=== PATIENT | male | born 1960 | race Caucasian/White ===

== ENCOUNTER 2020-02-11 13:52 | Outpatient (REF) | payer OTHER, SELFPAY | END 2020-02-11 13:53 | disposition home or self-care (01) | LOC: HO.LAB 13:52 | PROVIDERS: Visit Provider Internal Medicine | DX: Z20.828 Contact with and (suspected) exposure to other viral communicable diseases (principal) | CPT/HCPCS: U0003 ==

== ENCOUNTER → 2022-11-09 14:28 | Outpatient (BNVA) | payer OTHER, SELFPAY | PROVIDERS: PCP Internal Medicine; Visit Provider Nurse Practitioner Family ==

== ENCOUNTER → 2022-11-09 14:28 | Outpatient (AMB) | payer OTHER, SELFPAY ==
--- NOTE | 2022-11-09 14:34 | A.OFFVIS_ITS ---
Intake Vital Signs 11/09/22 14:39 Height 5 ft 8 in Weight 217 lb BMI 33.0 BP 142/74 H Blood Pressure Location Lt brachial Position Sitting Pulse 72 Intake Visit Reasons: Colonoscopy screening Intake Note: New consult for 2nd pre colonoscopy screening. Patient cc: occasional constipation and denies any other GI issues. 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 Accompanied by: Self / Same As Patient Allergies No Known Allergies Allergy (Verified 11/09/22 14:34) Medication List - Last Reconciled 11/09/22 by Lizzie Prieto PA-C ropinirole 4 mg PO TID PRN HPI HPI Comments History of Present Illness Details A 61 y/o male referred for screening colonoscopy- -wants to have it done before retires 12/07 Last colonoscopy- 10 years ago -hyperplastic polyp Mild constipation-manages with diet Appetite is good No known family history colon No nausea, vomiting, hematemesis, hematochezia fever chills PFSH Social History (Updated 11/09/22 @ 14:49 by Lizzie Prieto PA-C) Household Members Other:: lives alone Alcohol intake: current Patient Tobacco Use Status: Current someday Tobacco user Current occupational status: employed Review of Systems Const All systems reviewed & are unremarkable except as noted in HPI and below Card Denies chest pain and Denies dyspnea Resp Denies dyspnea GI Denies abdominal pain, Denies hematochezia and Denies heartburn Physical Exam Vital Signs: Last Vital Signs Pulse 72 11/09/22 14:39 BP 142/74 H 11/09/22 14:39 BMI result Body Mass Index 33.0 Const General: healthy appearing and comfortable Orientation/consciousness: patient oriented x3 Limitations: no limitations Eyes Sclerae: sclerae normal Resp Effort & Inspection: normal respiratory effort and able to speak in complete sentences Auscultation: clear to auscultation bilaterally and no wheezes Cardio Rate: regular rate Rhythm: regular rhythm Heart sounds: S1 normal heart sound present and S2 normal heart sound present GI Palpation (GI): Soft to palpation and nontender Auscultation: normal bowel sounds Skin General skin exam: no rashes or lesions noted Neuro General: patient oriented x3 Extrem General: Yes full ROM Psych Mental Status: mental status grossly normal Speech and movement: Clear speech present Affect: Indifferent affect present Attitude: cooperative Assessment & Plan Assessment & Plan (1) Encounter for screening colonoscopy: Comment: Screening colonoscopy will try however best to accommodate his time frame- however schedules are well- 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 His insurance will end by then He is aware that scheduling into December at this time. needs transportation MiraLax Gatorade prep sent to pharmacy, Literature to Orders: Orders Colonoscopy - GI Use Only 11/09/22 Z12.11 - Encounter for screening for malignant neoplasm of colon Medications: New bisacodyl (Dulcolax (bisacodyl)) Take 4 tablets by mouth at 12:00pm the day before your procedure. 20 mg (4 x 5 mg) PO ONCE 1 day 4 tabs 0RF colonoscopy prep Z12.11 - Encounter for screening for malignant neoplasm of colon polyethylene glycol 3350 (Miralax) Take as directed by mouth the day before your procedure. 238 grams PO ONCE 1 day PRN 238 grams 0RF laxative effect Patient Instructions: Will try to get him in by 12/07 however schedule Coding Level of Care Code New Pt Level 3 (93252) Diagnoses Encounter for screening colonoscopy Z12.11 Time Spent (min) 25
[2022-11-09 14:39] VITALS: BP 142/74; PULSE 72; BMI 33.0
== END ==
PROVIDERS: PCP Internal Medicine; Visit Provider Nurse Practitioner Family
DX: Z01.818 Encounter for other preprocedural examination (principal); Z12.11 Encounter for screening for malignant neoplasm of colon
CPT/HCPCS: S0285